=== PATIENT | female | born 1950 | race Hispanic/Latino ===

== ENCOUNTER 2018-12-30 11:10 | Day surgery (SDC) | payer OTHER ==
[~2018-12-30 11:10] MED LIST: IOPIDINE ONE; MYDRIACYL ONE; NEOFRIN ONE
[2018-12-30] MEDS ORDERED: NEOFRIN OD ONE (11:35)
[2018-12-30] MEDS ORDERED: MYDRIACYL OD ONE (11:35)
[2018-12-30] MEDS ORDERED: IOPIDINE OD ONE (11:35)
[2018-12-30 12:02] VITALS: BP 143/60
== END 2018-12-30 11:11 | disposition home or self-care (01) ==
LOC: OR 11:10
PROVIDERS: ATTEND Specialist
DX: E11.36 Type 2 diabetes mellitus with diabetic cataract (principal); H26.491 Other secondary cataract, right eye; E78.00 Pure hypercholesterolemia, unspecified; I10 Essential (primary) hypertension; E11.42 Type 2 diabetes mellitus with diabetic polyneuropathy; G62.9 Polyneuropathy, unspecified; M19.90 Unspecified osteoarthritis, unspecified site; J45.909 Unspecified asthma, uncomplicated; Z72.89 Other problems related to lifestyle; Z88.2 Allergy status to sulfonamides; Z79.4 Long term (current) use of insulin; Z79.84 Long term (current) use of oral hypoglycemic drugs; Z79.899 Other long term (current) drug therapy; Z87.891 Personal history of nicotine dependence; Z98.41 Cataract extraction status, right eye; Z98.42 Cataract extraction status, left eye; Z90.710 Acquired absence of both cervix and uterus; Z86.2 Personal history of diseases of the blood and blood-forming organs and certain disorders involving the immune mechanism; Z88.8 Allergy status to other drugs, medicaments and biological substances
CPT/HCPCS: 82962